=== PATIENT | female | born 1950 ===

== ENCOUNTER 2018-06-27 15:01 | Emergency (ER) | payer MEDICARE ==
[2018-06-27] MEDS ORDERED: ULTRAM PO ONE ×2 (15:23→15:35)
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
[2018-06-27 18:36] VITALS: BP 151/75
== END 2018-06-27 18:43 | disposition home or self-care (01) ==
LOC: ED 15:01
DX: S16.1XXA Strain of muscle, fascia and tendon at neck level, initial encounter (principal); S39.012A Strain of muscle, fascia and tendon of lower back, initial encounter; S83.91XA Sprain of unspecified site of right knee, initial encounter; S73.101A Unspecified sprain of right hip, initial encounter; I10 Essential (primary) hypertension; E11.9 Type 2 diabetes mellitus without complications; X58.XXXA Exposure to other specified factors, initial encounter; Y93.89 Activity, other specified; Y92.488 Other paved roadways as the place of occurrence of the external cause; Y99.8 Other external cause status
CPT/HCPCS: 70450; 72100; 72125